=== PATIENT | female | born 1990 | race Caucasian/White ===

== ENCOUNTER 2019-06-05 05:35 | Inpatient (IN) ==
--- NOTE | 2019-06-04 18:59 | History & Physical Report ---
Date of Service June 04, 2019 Assessment & Plan (1) Breech presentation: IUP at 39 weeks with prior LTCS and persistent breech presentation GBS (+) For repeat LTCS and bilateral tubal ligation. History of Present Illness Primary Care Provider: Al Lozoya Patient is a 28 yo white female EDC 06/12/19 who presents for repeat LTCS with persistent breech presentation. First was also done because of persistent breech position. otherwise uncomplicated except for GBS (+). Nicky is alos requesting bilateral tubal ligation because of multiparity and unwanted fertility. She understands the risk of the procedure including the risks of future pregnancies, regret, etc and she is willing to proceed. Allergies Allergy/AdvReac Type Severity Reaction Status Date / Time No Known Allergies Allergy Verified 06/04/19 13:40 Home Medications Home Medications Medication Instructions Recorded Confirmed Type breast pump #1 ea 04/10/19 06/04/19 Rx calcium carbonate [Tums] 200 mg PO TID PRN 06/02/19 06/04/19 History [id number] acid 1 tab PO QAM 06/02/19 06/04/19 History [ Multi] Patient History Medical History Encounter for anatomic survey Evaluate anatomy not seen on prior sonogram Narcolepsy without cataplexy Varicella Surgical History Nausea and vomiting after administration of anesthetic agent S/P S/P ear surgery S/P wisdom tooth extraction Family History Father Diabetes Heart disease Stroke Mother Thyroid disease Breast cancer Social History Preferred Language: Cymraes Communication Ability: Effective Nursing Care Attendant Required: No Beliefs That Will Affect Care: None marital status: marital status details: Angus eLiva (31) [phone] Current Living Situation: Family Current Living Situation Comment: AND 1 CHILD current occupational status: employed 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 @ [employer] Feels Safe at Home: Yes Smoking Status: Never smoker Second Hand Exposure: No ; Hx Alcohol Use: No Hx Substance Use: No Review of Systems All systems reviewed & are unremarkable except as noted in HPI & below Physical Exam Constitutional: WD/WN, vitals as above Respiratory: normal respiratory effort, lungs clear to auscultation Cardiovascular: RRR, no murmur, no edema Gastrointestinal (Abdomen): normal bowel sounds, soft, nontender, no hepatosplenomegaly Psychiatric: A+Ox3, euthymic affect Genitourinary: OB Exam Abdomen: + heart tones (140 bpm), + breech and + estimated weight (7-8 pounds); no regular contractions Breech presentation confirmed by sonogram Coding Level of Care Code None Diagnoses Breech presentation O32.1XX0
[2019-06-05] MEDS ORDERED: LACTATED RINGER'S 1,000 ML IV SCH ×2 (05:45→09:00)
[2019-06-05] MEDS ORDERED: CEFAZOLIN 3000MG 72.5 ML IV STA (05:54)
[2019-06-05] MEDS ORDERED: SODIUM CHLORIDE 0.9% 250 ML IV PRN (05:59)
[2019-06-05] MEDS ORDERED: SCOPOLAMINE 1.5 MG TDSY TD ONE (06:00)
[2019-06-05] MEDS ORDERED: CITRIC ACID/SODIUM CITRATE 15 ML UDC PO SCH (06:00)
[2019-06-05 06:02] LABS: Basophils # (auto) 0.02 K/uL (0-0.2); Basophils % (auto) 0.2 %; Eosinophils # (auto) 0.08 K/uL (0-0.5); Eosinophils % (auto) 0.8 %; Hematocrit (blood only) 38.1 % (37-47); Hemoglobin 12.6 g/dL (12.0-16.0); Immature Granulocytes # (auto) 0.04 K/uL (0.00-0.02); Immature Granulocytes % (auto) 0.4 %; Lymphocytes # (auto) 2.06 K/uL (1.2-3.4); Lymphocytes % (auto) 21.9 %; Mean Corpuscular Hemoglobin 28.1 pg (25-34); Mean Platelet Volume 10.4 fL (7.4-10.4); Monocytes # (auto) 0.82 K/uL (0.11-0.59); Monocytes % (auto) 8.7 %; Platelet Count 228 K/uL (130-400); RDW Coefficient of Variation 14.9 % (11.5-14.5); RDW Standard Deviation 46.1 fL (36.4-46.3); Red Blood Count 4.48 M/uL (4.2-5.4); White Blood Count 9.42 K/uL (4.8-10.8)
[2019-06-05 06:03] LABS: Mean Corpuscular Hgb Conc 33.1 g/dL (32-36)
--- NOTE | 2019-06-05 06:59 | Anesthesiology Consultation ---
Date of Service June 05, 2019 Assessment & Plan (1) Encounter for pre-operative examination: Chart Review Chart Review: Acceptable Risk for Surgery and Patient NOT seen in Pre Admission Testing Consults Requested none ASA ASA2 Proposed Anesthesia Anesthesia Type: Spinal Risk / Benefits Reviewed With: PT / POA / Parent / Guardian, Accepts Plan and In formed Consent Obtained History Surgery Operation Date: 06/05/19 07:30 Proposed Procedures p Section in LD - Nika Valverde MD, FACOG s Post Tubal Ligation Labor & Deliv - Nika Valverde MD, FACOG Height/Weight Height: 5 ft 8 in Weight: 107.501 kg Allergies Allergy/AdvReac Type Severity Reaction Status Date / Time No Known Allergies Allergy Verified 06/04/19 13:40 Medications Home Medications Medication Instructions Recorded Confirmed Last Taken breast pump #1 ea 04/10/19 06/04/19 Unknown calcium carbonate [Tums] 200 mg PO TID PRN 06/02/19 06/05/19 06/05/19 02:00 [id number] acid 1 tab PO QAM 06/02/19 06/05/19 06/04/19 05:30 [ Multi] NPO Date Last Intake of Fluids: 06/04/19 Time Last Intake of Fluids: 20:30 Date Last Intake of Solids: 06/04/19 Time Last Intake of Solids: 20:30 Past Medical History Medical History Encounter for anatomic survey Evaluate anatomy not seen on prior sonogram Narcolepsy without cataplexy Varicella Exercise / Class Metabolic Activity II 4-5 Yardwork/Stairs/Walk up hill Past Family History Family History Father Diabetes Heart disease Stroke Mother Thyroid disease Breast cancer Past Surgical History Surgical History Nausea and vomiting after administration of anesthetic agent S/P S/P ear surgery S/P wisdom tooth extraction Past Anesthesia History No Hx of Anesthesia Complications History of PONV History of PONV Social History Smoking Status: Never smoker Do You Dip or Chew Tobacco: No Hx Alcohol Use: No Hx Substance Use: No substance use type: does not use Review of Systems Patient denies history of abnormal bleeding or bleeding disorder. Patient denies active use of anticoagulants other than low dose aspirin. Patient denies numbness, tingling or weakness in lower extremities. Negative for chest pain or shortness of breath. Physical Exam Vital Signs Last Vital Signs Temp 36.6 C 06/05/19 05:47 Pulse 83 06/05/19 05:50 Resp 16 06/05/19 05:47 BP 131/76 06/05/19 05:50 Constitutional not obese (Gravid uterus) ENMT Mouth: no TMJ abnormality and oral opening not small Thyromental Distance: > or= 3.5 Finger Breadths Mallampati Class: II Neck normal visual inspection; neck extension not limited Respiratory normal respiratory effort Auscultation: lungs clear to auscultation bilaterally Cardiovascular Rate/Rhythm: regular rate and regular rhythm Heart Sounds: no murmur Neurologic moves all extremities Psychiatric Orientation: alert and oriented x 3 Testing Laboratory Results 06/05/19 05:46 Blood Type O Positive 06/05/19 05:45 Antibody Screen NEGATIVE 06/05/19 05:45
[2019-06-05] MEDS ORDERED: fentaNYL citrate 100 MCG/2 ML VIAL ONE (07:07)
[2019-06-05] MEDS ORDERED: MoRPHine SULFATE PF 1 MG/ML 10 ML AMP/VIAL ONE (07:08)
[2019-06-05] MEDS ORDERED: OXYTOCIN 10 UNITS/ML VIAL ONE ×4 (07:08→08:32)
--- NOTE | 2019-06-05 07:20 | History & Physical Bridge Note ---
Date of Service June 05, 2019 History & Physical Bridge Note I have examined the patient, reviewed the History & Physical and in the interval since the performance of the History & Physical I have noted the following changes of clinical significance: no changes noted
[2019-06-05] MEDS ORDERED: NALOXONE HCL 0.4 MG/1 ML VIAL/CARP IV PRN (07:51)
[2019-06-05] MEDS ORDERED: NALBUPHINE HCL INJ 10 MG/ML AMP IV PRN (07:51)
[2019-06-05] MEDS ORDERED: HYDROmorphone INJ 0.5 MG/0.5 ML SYR IV PRN (07:51)
[2019-06-05] MEDS ORDERED: ACETAMINOPHEN 1000 MG/100 ML IV IV PRN (07:51)
[2019-06-05] MEDS ORDERED: ONDANSETRON INJ 2 MG/ML 2 ML VIAL IV PRN (07:51)
[2019-06-05] MEDS ORDERED: DiphenhydrAMINE HCL 50 MG/ML VIAL IV PRN (07:51)
[2019-06-05] MEDS ORDERED: NALOXONE HCL 1 MG in SODIUM CHLORIDE 0.9% 1000ML 1,000 ML IV PRN (07:51)
[2019-06-05] MEDS ORDERED: MoRPHine SULFATE PF 1 MG/ML 10 ML AMP/VIAL INT SPINAL ONE (07:51)
[2019-06-05] MEDS ORDERED: ePHEDrine sulfate 50 MG/ML AMP IV PRN (07:51)
[2019-06-05] MEDS ORDERED: LACTATED RINGER'S 500 ML IV PRN (07:51)
[2019-06-05] MEDS ORDERED: NALOXONE HCL 0.08 MG in SYRINGE 1.8 ML IV PRN (07:51)
[2019-06-05] MEDS ORDERED: DC INTRASPINAL MORPHINE SCH (08:00)
[2019-06-05] MEDS ORDERED: NO NARCOTICS OR SEDATIVES SCH (08:00)
[2019-06-05] MEDS ORDERED: SODIUM CHLORIDE 0.9% 1000ML 1,000 ML IV SCH (08:00)
[2019-06-05] MEDS ORDERED: PHENYLEPHRINE 100MCG/ML 5ML SYR ONE (08:04)
[2019-06-05] MEDS ORDERED: ONDANSETRON INJ 2 MG/ML 2 ML VIAL ONE (08:04)
[2019-06-05] MEDS ORDERED: KETOROLAC 30 MG/ML VIAL ONE (08:18)
--- NOTE | 2019-06-05 08:43 | Post Operative Brief Note ---
PG Immediate Post Op with CF Date of Surgery June 05, 2019 Pre & Post Diagnosis Operation Date: 06/05/19 07:30 Pre-Op Diagnosis: History of Section; Desire for repeat Section and Bilateral Tubal Ligation Post-Op Diagnosis: History of Section; Low Transverse Section and Bilateral Tubal Ligation I identified the patient and participated in the time-out.: Yes Procedure Operation Date: 06/05/19 07:30 Actual Procedures p Section in LD - Nika Valverde MD, FACOG s Post Tubal Ligation Labor & Deliv - Nika Valverde MD, FACOG Surgeon Nika Valverde MD, FACOG Organ Pipe Finisher Carolee Gillespie MD Estimated Blood Loss 400 Findings Consistent with Post-Op Diagnosis Specimens Specimen Description: A. CORD BLOOD B. PLACENTA-HOLD C. PORTION OF RIGHT FALLOPIAN TUBE D. PORTION OF LEFT FALLOPIAN TUBE Drains Smith Catheter (inserted after spinal with return of clear yellow urine)
[2019-06-05] MEDS ORDERED: HYDROCORTISONE ACETATE 25 MG SUPP PR PRN (08:58)
[2019-06-05] MEDS ORDERED: SUPERCREAM 0.870% 15 GM JAR EXT PRN (08:58)
[2019-06-05] MEDS ORDERED: SENNA 8.6 MG TAB PO PRN (08:58)
[2019-06-05] MEDS ORDERED: BENZOCAINE 20% AER SPR 82.5 GM CAN EXT PRN (08:58)
[2019-06-05] MEDS ORDERED: ACETAMINOPHEN 1,000 MG/100 ML VIAL IV PRN (08:58)
[2019-06-05] MEDS ORDERED: MAGNESIUM HYDROXIDE SUSP 30 ML UDC PO PRN (08:58)
[2019-06-05] MEDS ORDERED: DIPHTHERIA/TETANUS/PERTUSSIS 0.5 ML SYR/VIAL IM ONE (08:58)
[2019-06-05] MEDS: OXYTOCIN 20 UNITS in LACTATED RINGER'S 1,000 ML IV SCH ×2 (09:24→17:56)
--- NOTE | 2019-06-05 10:23 | Operative Report (OR) ---
DATE OF OPERATION: 06/05/2019 SURGEON: Nika León MD. SKATE BOARDER: Carolee Gillespie MD. PREOPERATIVE DIAGNOSES: Intrauterine at 39 weeks with prior section, persistent breech presentation and multiparity, as well as unwanted fertility. POSTOPERATIVE DIAGNOSES: Intrauterine at 39 weeks with prior section, persistent breech presentation and multiparity, as well as unwanted fertility; delivery of a viable male , 7 pounds 12 ounces. ESTIMATED BLOOD LOSS: 400 mL. ANESTHESIA: Subarachnoid block. HISTORY: The patient is a 28-year-old 2, para 1-0-0-1 white female, EDC of 06/12/2019 who presents for repeat section. Her first section was done because of persistent breech presentation. This baby is also in a breech presentation and she is also requesting permanent sterilization for unwanted fertility and multiparity. She understands the risks of procedure and is willing to proceed. GROSS FINDINGS: Uterus is gravid and consistent with a term in size. Bilateral ovaries and fallopian tubes are grossly normal. There is 3 small sessile fibroids present, one on the anterior surface of the uterus near the fundus as well as two just behind the round ligament on the right. DESCRIPTION OF PROCEDURE: After the patient received adequate subarachnoid block, she was prepped and draped in the usual sterile fashion. A skin incision was made through her prior scar and carried to the fascia with the same scalpel. The fascial incision was then extended with Aleman scissors. The edges were then grasped with Ramiro clamps. The underlying rectus muscles were bluntly and sharply dissected off the overlying fascia and there was an omental adhesion to the anterior abdominal wall, which was taken down with the Bovie. The peritoneum was entered sharply during this dissection. The rectus muscles were divided on the midline inferiorly. The bladder was then taken down off the anterior surface of the uterus with Metzenbaum scissors and placed behind the bladder blade. Lower uterine segment was entered with the scalpel and extended transversely. Membranes were ruptured for clear fluid. The infant was delivered from the double footling presentation with moderate fundal pressure. There was a double nuchal cord, which was reduced after delivery of the head. There was spontaneous crying and the infant was moving all 4 limbs. The cord was clamped and cut and the infant was handed off to Dr. Mendoza who was in attendance as a compounding scaler. After cord blood was obtained, the placenta was removed manually and the uterus was then exteriorized and covered with a clean lap sponge. The uterine cavity was explored and found to be free of any placental tissue or membranes. The uterus was then closed in 2 layers in a running locking imbricating fashion. At this point, the tubal ligation was performed. The left fallopian tube was identified and followed to its fimbriated end. A suture ligature was placed on the proximal portion of the tube and tied securely. A knuckle of tube was then developed with this suture ligature. The tube had been grasped with a Federico clamp prior to placing the initial suture. The knuckle of tube was then removed after a single second suture ligature was placed to reinforce the first. The knuckle of tube was removed and handed off for pathology. The right fallopian tube was identified, followed to its fimbriated end, was grasped in the mid portion with a Federico clamp. A suture ligature was placed proximally on the tube. A knuckle of tube was developed with a suture of plain catgut. A second suture ligature of the same was placed to reinforce the first. The knuckle of tube was then removed. There was some bleeding from the tubal site at this time. A second suture ligature was placed, the bleeding continued. The distal portion of the tube was then grasped across where the tubal portion was removed with a Marlys clamp and this was removed in its entirety. The remaining pedicle was suture ligated with 3-0 plain catgut as well. Hemostasis was noted to be excellent. A second suture ligature was placed to reinforce it. Again, hemostasis continued to be excellent at the tubal site. After irrigating the posterior cul-de-sac with normal saline, the uterus was placed back in the abdominal cavity. The tubal sites were examined once more and found to have excellent hemostasis as did the incision. The anterior cul-de-sac was irrigated with normal saline. The rectus muscles could not be brought together in the midline because of excessive tension on that tissue. The fascia was then closed in a running fashion with 0 Vicryl. Skin edges were reapproximated with 4-0 Vicryl in a subcuticular manner after irrigating the adipose layer. Urine was clear at the end of the case. Mother and infant were doing well after the section. I attest to the content of the Intraoperative Record and any orders documented therein. Any exceptions are noted below. KIRAN
[2019-06-05] MEDS: KETOROLAC 30 MG/ML VIAL IV PRN ×2 (10:33→20:42)
--- NOTE | 2019-06-05 11:05 | Anesthesiology Progress Note ---
Date of Service June 05, 2019 Anesthesia Post Procedure Vital Signs Vital Signs: Temp Pulse Resp BP Pulse Ox 06/05/19 11:03 95 H 93 06/05/19 11:00 75 100 06/05/19 10:55 82 100 06/05/19 10:50 75 100 06/05/19 10:49 83 137/73 06/05/19 10:45 77 100 06/05/19 10:40 76 100 06/05/19 10:35 76 100 06/05/19 10:34 72 132/68 06/05/19 10:30 79 100 06/05/19 10:25 76 100 06/05/19 10:20 80 100 06/05/19 10:19 71 134/67 06/05/19 10:15 76 100 06/05/19 10:10 86 100 06/05/19 10:05 74 100 06/05/19 10:03 72 133/64 06/05/19 10:00 76 100 06/05/19 09:55 83 100 06/05/19 09:54 72 129/61 06/05/19 09:51 36.3 C L 83 18 129/61 100 06/05/19 09:50 75 100 06/05/19 09:45 72 100 06/05/19 09:44 71 134/59 L 06/05/19 09:41 75 22 134/59 L 06/05/19 09:40 72 100 06/05/19 09:35 73 100 06/05/19 09:34 75 118/64 06/05/19 09:31 68 16 100 06/05/19 09:30 75 100 06/05/19 09:25 79 125/60 100 06/05/19 09:21 79 125/60 100 06/05/19 09:20 81 100 06/05/19 09:15 79 100 06/05/19 09:13 81 133/61 06/05/19 09:11 76 18 99 06/05/19 09:10 87 99 06/05/19 09:05 87 97 06/05/19 09:03 75 129/60 06/05/19 09:01 87 20 99 06/05/19 09:00 83 97 06/05/19 08:57 83 93 06/05/19 08:55 81 99 06/05/19 08:51 36.3 C L 86 16 142/80 H 06/05/19 08:50 86 100 06/05/19 05:50 83 131/76 06/05/19 05:47 36.6 C 83 16 131/76 Pain Intensity Bilateral Anterior Abdomen: Pain Intensity: 0 Transfer of Care Handoff Completed per policy Notes Mental Status: alert / awake / arousable and participated in evaluation Nausea / Vomiting: adequately controlled Pain: adequately controlled Airway Patency, RR, SpO2: stable & adequate BP & HR: stable & adequate Hydration State: stable & adequate Neuraxial Anesthesia: was administered and sensory block is resolving Anesthetic Complications: no major complications apparent and Pt Satisfied with anesthetic care
[2019-06-05] MEDS: SIMETHICONE 80 MG CHEW PO SCH ×3 (13:15→20:43)
[2019-06-05] MEDS: DOCUSATE SODIUM 100 MG CAP PO SCH (20:43)
[2019-06-06] MEDS ORDERED: KETOROLAC 30 MG/ML VIAL IV PRN (01:52)
[2019-06-06] MEDS ORDERED: ONDANSETRON INJ 2 MG/ML 2 ML VIAL IV PRN (01:52)
[2019-06-06] MEDS ORDERED: ZOLPIDEM TARTRATE 5 MG TAB PO PRN (01:52)
[2019-06-06] MEDS ORDERED: MEPERIDINE HCL 50 MG/ML CARP IV PRN (01:52)
[2019-06-06] MEDS ORDERED: PROMETHAZINE HCL 25 MG in SODIUM CHLORIDE 0.9% 50 ML IV PRN (01:52)
[2019-06-06] MEDS ORDERED: DiphenhydrAMINE HCL 50 MG/ML VIAL IV PRN (01:52)
--- NOTE | 2019-06-06 06:35 | Obstetrical Progress Note ---
Date of Service June 06, 2019 Assessment & Plan (1) Encounter for care and examination after delivery: satisfactory - postop progress continue current care plan Day #:: 1 Subjective Ambulation: ambulating normally Voiding: no voiding problems Passing Gas:: Yes Diet Tolerance:: regular diet Lochia:: Small Feeding Type:: breast feeding Physical Exam Constitutional WD/WN, vitals as above Gastrointestinal (Abdomen) Inspection/Auscultation: + abdominal surgical scar (incision intact & dry) and + abdominal surgical incision Psychiatric A+Ox3, euthymic affect Genitourinary OB Exam Abdomen: + fundal height Fundus: + firm Results & Data Vital Signs (Past 12 Hours) Vital Signs Temp Pulse Pulse Resp BP Pulse Ox 06/06/19 03:25 97.9 F 84 20 116/76 97 06/06/19 02:00 16 96 06/06/19 01:00 20 97 06/06/19 00:45 98.1 F 88 20 118/72 97 06/06/19 00:00 18 97 06/05/19 22:58 20 98 06/05/19 22:00 18 98 06/05/19 20:54 18 98 06/05/19 19:30 98.1 F 91 H 18 112/67 97
[2019-06-06] MEDS: CHECK SCOPOLAMINE PATCH PLACEMENT SCH ×2 (06:44→08:00)
[2019-06-06] MEDS: IBUPROFEN 600 MG TAB PO PRN ×4 (07:35→21:12)
[2019-06-06] MEDS: PRENATAL VITAMIN 1 TAB PO SCH (07:35)
[2019-06-06] MEDS: DOCUSATE SODIUM 100 MG CAP PO SCH ×2 (07:35→21:12)
[2019-06-06] MEDS: FERROUS SULFATE 325 MG TAB PO SCH (07:35)
[2019-06-06] MEDS: OXYCODONE/ACETAMINOPHEN 5mg/325mg TAB PO PRN ×4 (07:35→21:12)
[2019-06-06] MEDS: SIMETHICONE 80 MG CHEW PO SCH ×4 (07:37→21:12)
[2019-06-06 07:47] LABS: Basophils # (auto) 0.01 K/uL (0-0.2); Basophils % (auto) 0.1 %; Eosinophils # (auto) 0.08 K/uL (0-0.5); Eosinophils % (auto) 0.7 %; Hematocrit (blood only) 32.6 % (37-47); Hemoglobin 10.5 g/dL (12.0-16.0); Immature Granulocytes # (auto) 0.04 K/uL (0.00-0.02); Immature Granulocytes % (auto) 0.3 %; Mean Corpuscular Hemoglobin 27.9 pg (25-34); Mean Corpuscular Hgb Conc 32.2 g/dL (32-36); Mean Corpuscular Volume 86.5 fL (80-100); Mean Platelet Volume 10.1 fL (7.4-10.4); Monocytes # (auto) 0.97 K/uL (0.11-0.59); Monocytes % (auto) 8.1 %; Neutrophils # (auto) 9.71 K/uL (1.4-6.5); Neutrophils % (auto) 80.8 %; Platelet Count 169 K/uL (130-400); RDW Coefficient of Variation 15.4 % (11.5-14.5); RDW Standard Deviation 48.6 fL (36.4-46.3); Red Blood Count 3.77 M/uL (4.2-5.4); White Blood Count 12.01 K/uL (4.8-10.8)
[2019-06-06] MEDS ORDERED: bisacodyL 5 MG TABEC PO SCH (20:00)
[2019-06-07] MEDS: OXYCODONE/ACETAMINOPHEN 5mg/325mg TAB PO PRN ×3 (02:24→13:10)
[2019-06-07] MEDS: IBUPROFEN 600 MG TAB PO PRN ×3 (02:25→13:10)
[2019-06-07 06:26] LABS: Hematocrit (blood only) 31.1 % (37-47); Hemoglobin 10.1 g/dL (12.0-16.0)
--- NOTE | 2019-06-07 07:00 | Obstetrical Progress Note ---
Date of Service June 07, 2019 Assessment & Plan (1) Encounter for care and examination after delivery: Recovering normally POD#1 and wants to be discharged home today. L&D RN very well aware of what to watch for and any cause for concern. Subjective Ambulation: ambulating normally Voiding: no voiding problems Passing Gas:: Yes Diet Tolerance:: regular diet Lochia:: Small Feeding Type:: breast feeding Physical Exam Constitutional WD/WN, vitals as above Eyes PERRL, conjunctivae normal, anicteric sclerae Neck normal visual inspection Respiratory normal respiratory effort and able to speak in complete sentences; no respiratory distress and no labored breathing Cardiovascular Rate/Rhythm: regular rate and regular rhythm Extremities: no edema Chest (Breasts) Chest: normal inspection of chest Gastrointestinal (Abdomen) Inspection/Auscultation: abdomen normal to inspection and + abdominal surgical incision (C/d/i with glue) Soft, postgravid Psychiatric A+Ox3, euthymic affect Genitourinary OB Exam Abdomen: + fundal height Fundus: + firm and + relation to umbilicus (fundus just below umbilicus); not tender Results & Data Vital Signs (Past 12 Hours) Vital Signs Temp Pulse Resp BP 06/06/19 23:35 97.5 F L 91 H 18 117/77
[2019-06-07] MEDS: FERROUS SULFATE 325 MG TAB PO SCH (08:08)
[2019-06-07] MEDS: SIMETHICONE 80 MG CHEW PO SCH ×2 (08:08→13:10)
[2019-06-07] MEDS: PRENATAL VITAMIN 1 TAB PO SCH (08:08)
[2019-06-07] MEDS: DOCUSATE SODIUM 100 MG CAP PO SCH (08:08)
[2019-06-07] MEDS ORDERED: bisacodyL 10 MG SUPP PR PRN (08:58)
--- NOTE | 2019-06-08 16:32 | Discharge Summary (DS) ---
PRINCIPAL DIAGNOSES: Intrauterine at 39 weeks, prior section, undesired fertility and multiparity, as well as breech presentation. PRINCIPAL PROCEDURE: Repeat low transverse section and bilateral tubal ligation. HISTORY OF PRESENT ILLNESS: The patient is a 28-year-old 2, para 1-0-0-1 white female who presented for repeat section. She had a section for her first and delivery because of persistent breech presentation. This baby also was in a persistent breech presentation. She also is requesting permanent sterilization because of multiparity and undesired fertility. The section and bilateral tubal ligation was done without complications. She had an uncomplicated postop course. She was eating a regular diet by her 1st postop day, ambulating without difficulty actually the evening of her . Her pain was well controlled with oral pain medication. Blood count on admission was 12.6, hematocrit 38.1. First postop day hemoglobin 10.5, hematocrit 32.6. Second postop day hemoglobin 10.1, hematocrit 31.1. She was sent home in good condition with prescriptions for Percocet 1-2 tablets p.o. q. 4 hours p.r.n. pain, Motrin 600 mg p.o. q. 4-6 hours p.r.n. pain. She is to call for any increase in her incision pain, burning with urination, increased redness or drainage from her incision, heavy vaginal bleeding, burning with urination or any other concerns. She is to be seen in the office in 6 weeks for followup visit.
== END 2019-06-07 14:11 | disposition home or self-care (01) | DRG 785 ==
LOC: 4S1 05:35 → 4S2 11:34 → EDSTATUS 06-22 07:30
PROC: M.PPTLD (2019-06-05 07:30)